=== PATIENT | female | born 1985 ===

== ENCOUNTER 2017-12-12 10:58 | Inpatient (IN) | payer OTHER ==
[~2017-12-12] VITALS: Ht 162.6 cm; Wt 78.9 kg
[2017-12-17] MEDS ORDERED: PRENATAL 19 TA1 EAC1 PO (08:15)
== END 2017-12-19 12:24 | DRG 775 ==
LOC: LDR 12-17 07:14 → OB/GYN 12-17 23:41
PROC: 10E0XZZ Delivery of Products of Conception, External Approach (ICD-10-PCS; principal; 2017-12-17)
PROC: 0KQM0ZZ Repair Perineum Muscle, Open Approach (ICD-10-PCS; 2017-12-17)
PROC: 4A1HXCZ Monitoring of Products of Conception, Cardiac Rate, External Approach (ICD-10-PCS; 2017-12-17)
PROC: 3E033VJ Introduction of Other Hormone into Peripheral Vein, Percutaneous Approach (ICD-10-PCS; 2017-12-17)
DX: O70.1 Second degree perineal laceration during delivery (principal); Z37.0 Single live birth; Z3A.39 39 weeks gestation of pregnancy